=== PATIENT | female | born 2000 | race Hispanic/Latino ===

== ENCOUNTER 2024-04-05 12:08 | Emergency (ER) | payer MEDICAID ==
[~2024-04-05] VITALS: Ht 165.1 cm; Wt 74.8 kg
[2024-04-05 13:08] LABS: BASOPHILS # (AUTO) 0.02 K/uL (0.00-0.20); BASOPHILS % (AUTO) 0.2 % (0.0-5.0); EOSINOPHILS # (AUTO) 0.08 K/uL (0.00-0.70); EOSINOPHILS % (AUTO) 0.8 % (0.0-8.0); HEMATOCRIT 36.2 % (36-48); IMMATURE GRANULOCYTE ABSOLUTE 0.04 K/uL (0-1); LYMPHOCYTES # (AUTO) 2.4 K/uL (1.0-4.8); LYMPHOCYTES % (AUTO) 23.4 % (21.0-51.0); MEAN CORPUSCULAR HEMOGLOBIN 21.5 pg (27.0-33.0); MEAN CORPUSCULAR HGB CONC 31.5 g/dL (32.0-36.0); MEAN CORPUSCULAR VOLUME 68.2 fL (79-99); MONOCYTES # (AUTO) 0.6 K/uL (0.1-1.0); MONOCYTES % (AUTO) 5.5 % (3.0-13.0); NEUTROPHILS % (AUTO) 69.7 % (40.0-77.0); PLATELET COUNT (AUTO) 342 K/uL (130-400); RED BLOOD CELL COUNT(AUTO) 5.31 MIL/uL (4.00-5.50); RED CELL DISTRIBUTION WIDTH 16.5 % (11.0-15.5); WHITE BLOOD COUNT (AUTO) 10.1 K/uL (4.8-10.8)
[2024-04-05 13:16] LABS: CREATININE 0.8 mg/dL (0.5-1.0); POTASSIUM 4.1 mmol/L (3.5-5.1)
[2024-04-05] MEDS: acetaMINOPHEN 500 MG TABLET PO ONE (13:18)
[2024-04-05] MEDS: 0.9%NACL 1000ML 1,000 ML IV ONE (13:19)
[2024-04-05 13:47] LABS: APPEARANCE,URINE CLEAR (CLEAR); BILIRUBIN,URINE NEGATIVE (NEGATIVE); COLOR,URINE LIGHT-YELLOW (YELLOW); GLUCOSE, URINE (UA) >=1000 mg/dL (NEGATIVE); KETONES,URINE NEGATIVE (NEGATIVE); LEUKOCYTE ESTERASE ,URINE NEGATIVE Leu/uL (NEGATIVE); NITRATE,URINE NEGATIVE (NEGATIVE); OCCULT BLOOD,URINE NEGATIVE (NEGATIVE); PROTEIN,URINE NEGATIVE (NEGATIVE); UROBILINOGEN,URINE 0.2 mg/dL (0.2-1.0)
[2024-04-05 13:48] LABS: ADD UA MICROSCOPIC YES
[2024-04-05 14:04] LABS: HCG,QUALITATIVE URINE POSITIVE (NEGATIVE)
[2024-04-05 14:05] LABS: BACTERIA,URINE RARE /HPF (None Seen); MUCUS,URINE RARE LPF (None Seen); RBC,URINE 0-1 /HPF (0-1); SQUAMOUS EPITHELIAL CELL,UR RARE /HPF (0-2)
[2024-04-05] MEDS: INSULIN humuLIN R 100 UNIT/ML 3ML IV ONE (14:12)
--- NOTE | 2024-04-05 14:53 | HMCIMG ---
Exam Type: US OB <14 WEEKS Clinical Information: VAGINAL BLEEDING Comparison: None Findings: Anteverted uterus, unremarkable. Empty endometrial cavity. Left ovary normal in size and echogenicity and vascularity. Right ovary not seen. No intrauterine . IMPRESSION: No intrauterine . Nonvisualization of the right ovary.
[2024-04-05 15:36] VITALS: BP 120/60; PULSE 93; RESP 16; TEMP 98.3; O2SAT 98
[2024-04-05] MEDS ORDERED: MICO45CR44 VG (17:05)
--- NOTE | 2024-04-05 17:05 | ERN ---
ED Note History of Present Illness Stated Complaint: POSS UTI, SEVERE BACK PAIN Chief Complaint: UTI without Fever Time Seen by MD: 12:09 Time Seen by Midlevel: 12:08 Dictation: The patient is a 23-year-old female with a history of diabetes on metformin and Ozempic but noncompliant with medication. Patient reports she has not had her medication in one month. Patient reports burning and itching when urinating. Reports non odorous white discharge. Denies any vaginal bleeding. Reports last menstrual period in March 06. 4 . The patient denies any fevers. Or hematuria. Allergies: Coded Allergies: No Known Drug Allergies (Unverified Allergy, Unknown, 04/05/24) Home Meds Active Scripts Miconazole Nitrate (Miconazole Nitrate) 2 % Cream.appl, 1 LORRAINE VG HS for 7 Days, #45 GM 0 Refills Prov:CHAPIS WEN NIGHT MONITOR 04/05/24 Past Medical History Past Medical History: Diabetes-Type II, Other Additional Past Medical Hx: DVT Surgical History: Other Surgical History Other: L LEG SX RN Note Reviewed/Agreed w/PFSH: Yes Review of System Dictation Constitutional: Negative for fever,chills, and weight loss Eyes: Negative for injury, pain,redness, and discharge ENT: Negative for injury,pain or swelling Cardiovascular: Negative for chest pain, palpitations, and edema Respiratory: Negative for shortness of breath, cough, and wheezing, Abdomen/GI: Negative for abdominal pain, nausea, vomiting, diarrhea, and constipation Back: Negative for injury and pain positive for back pain : Negative for injury, bleeding and discharge positive for burning urination, vaginal itching is MS/Extremity: Negative for injury and deformity Skin: Negative for rash, and discoloration Neuro: Negative for headache, weakness, numbness, tingling, and seizure Psych: Negative for suicide ideation, homicidal ideation, and hallucinations Initial Vital Sign VS Vital Signs Date Time Temp Pulse Resp B/P (MAP) Pulse Ox O2 Delivery O2 Flow Rate FiO2 04/05/24 12:59 98.2 97 17 121/63 99 Room Air 0 04/05/24 13:08 21 Physical Exam Dictation Vital Signs reviewed General Appearance: Alert, oriented x 3, no acute distress, well developed, no urished. Head and Face: non-traumatic. Eyes: PERRL, pink conjunctivas, eyelid no trauma, anterior chamber with arcus senilis. Ears: Pinnas intact and no signs of trauma or erythema ear canals clear and no discharge TM no erythema Nose: No discharge, no bleeding. Oropharynx: Mouth normal, tongue pink. pharynx clear,no erythema, tonsils no exudates, no abscesses noted, mucous me mbrane moist Neck: Supple, non-tender, no thyromegaly, no masses, no JVD, no bruits Breast:Deferred Chest:No tenderness, no crepitus, no paradoxical movement, no retractions Lungs:Clear, well-ventilated, symmetric, no rales, no wheezing, no rhonchi, no stridor, good breath sounds bilaterally Heart: Regular rate, regular rhythm, no murmur, no gallops Vascular: no peripheral edema, Abdomen: Soft, positive bowel sounds, nondistended, no guarding, nontender, no rebound, no masses no hepatomegaly, no splenomegaly, no Chambers's sign, no hernias. Rectal: Deferred Genital: No wounds noted to external labia, nontender cervix, white non odorous discharge noted, clumpy,thick Neurological: Normal speech, motor function intact, sensory function intact Musculoskeletal: Neck nontender, full range of motion, back nontender, full range of motion, Extremities: nontender, full range of motion Skin: Color pink, dry, no turgor, no rash, no lacerations, no abrasions, no contusions. Lymphatic: Deferred Results (Laboratory/Radiology) Laboratory/Radiology Labs Reviewed?: Yes ED Course ED Course Medical Decision Making MDM The patient is a 23-year-old female with a history of diabetes on metformin and Ozempic but noncompliant with medication. Patient reports she has not had her medication in one month. Patient reports burning and itching when urinating. Reports non odorous white discharge. Denies any vaginal bleeding. Reports last menstrual period in March 06. 4 . The patient denies any fevers. Or hematuria. CBC showed no leukocytosis, mild microcytic anemia, chemistry showed mild hyponatremia, hypochloremia, elevated blood glucose, no DKA. Patient received a L and insulin of fluids in ER. glucose improved. Urinalysis positive hCG, hCG level of 136. Patient unknown of . Denies any abdominal pain or vaginal bleeding. Ultrasound showed no intrauterine . Might be due to early . Patient instructed to follow up with OBGYN. On physical exam patient has symptoms consistent with yeast infection. We will be treated Differential diagnosis: UTI, pyelonephritis, sepsis, electrolyte imbalance, Need for hospitalization: Patient does not meet criteria for hospitalization. There are no social concerns with this patient. DX & DISP Disposition: Discharge Departure Impression: Primary Impression: Yeast infection Additional Impressions: Uncontrolled diabetes mellitus, Positive test Condition: Stable Scripts Miconazole Nitrate (Miconazole Nitrate) 2 % Cream.appl 1 LORRAINE VG HS for 7 Days, #45 GM 0 Refills Prov: BETTYECHAPIS ROBERTO 04/05/24 Additional Instructions: Is follow up with your provider in 1-2 days. You will need to follow up with your OBGYN so they repeat your hCG levels and ultrasound. Please return to ER if severe abdominal pain, vaginal bleeding develop. FOLLOW-UP WITH PRIMARY CARE PROVIDER IN 1 TO 2 DAYS. TAKE MEDICATIONS DIRECTED HERE IN THE EMERGENCY ROOM. OKAY TO CONTINUE HOME MEDICATIONS UNLESS OTHERWISE DISCUSSED DURING YOUR VISIT IN THE EMERGENCY ROOM TODAY. RETURN TO YOUR NEAREST EMERGENCY ROOM IF SYMPTOMS WORSEN OR IF THERE IS NO IMPROVEMENT. CALL 911 IF YOU NEED IMMEDIATE ASSISTANCE. TAKE TYLENOL [id number] NEEDED AND IF NO CONTRAINDICATIONS ARE PRESENT. INCREASE ORAL HYDRATION. A WOUND CULTURE OR URINE CULTURE WAS ORDERED HERE IN THE EMERGENCY ROOM DEPARTMENT PLEASE FOLLOW-UP WITH PRIMARY CARE PROVIDER AND ADVISE THEM TO GET REPEAT PORTS FROM OUR FACILITY. IF YOU HAD ANY CRISS WRAP/SPLINTS THAT WERE APPLIED HERE, PLEASE DO NOT REMOVE THEM UNTIL YOU SEE YOUR PRIMARY CARE OR SPECIALTY. Referrals: NONE (PCP) Time of Disposition: 17:03 I have reviewed the case, and I agree with, Diagnosis and Plan ATTESTATION BY PHYSICIAN I PERFORMED THE SUBSTANTIVE PORTION OF THE VISIT. I HAVE REVIEWED AND PERSONALLY MADE AND APPROVED THE MANAGEMENT PLAN THAT IS DOCUMENTED IN THE NOTE BY MYSELF FOR THE A PP. I ACKNOWLEDGED FOR RESPONSIBILITY FOR THE PATIENT'S MANAGEMENT PLAN. CHAPIS WEN Apr 05, 2024 17:05 WINTER YOO MD Apr 09, 2024 20:10
[2024-04-09 09:22] LABS: GLUCOSE POC COMMENT Notified Nurse
== END 2024-04-05 17:22 | disposition home or self-care (01) ==
LOC: EDH 12:08
DX: O98.811 Other maternal infectious and parasitic diseases complicating pregnancy, first trimester (principal); B37.9 Candidiasis, unspecified; R10.2 Pelvic and perineal pain; O24.111 Pre-existing type 2 diabetes mellitus, in pregnancy, first trimester; Z3A.00 Weeks of gestation of pregnancy not specified; Z79.899 Other long term (current) drug therapy
CPT/HCPCS: 99285; 96374; 76801; 96361; 80048; 84702; 85025; 86900; 86901; 87086 ×2; 87186; 81001; 81025; 36415; J1815; J7030; 82948